=== PATIENT | female | born 1990 | race American Indian/Alaskan Native ===

== ENCOUNTER 2016-12-04 15:36 | Emergency (ER) | payer MEDICAID ==
--- NOTE | 2016-12-04 17:32 | Emergency Department Report ---
Entered by BETTY CORONEL, acting as scribe for SAJI MORRISSEY PA. Chief Complaint: Vaginal Bleeding Stated Complaint: 11 WKS PREG/VAG BLEEDING Time Seen by Provider: 12/04/16 16:42 - HPI History of Present Illness: 26 y/o female presents c/o vaginal bleeding that started today. Sx include constipation that started 3 days ago, vomiting today, abd pain but pt denies fever and chiils. This is her 2nd , P1. 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 - ROS Review of Systems: as noted in HPI - Exam Vital Signs: Vital Signs 12/04/16 16:24 Temperature 98.4 F Pulse Rate 99 H Respiratory 16 Rate Blood Pressure 117/78 O2 Sat by Pulse 100 Oximetry Physical Exam: General: 26-year-old female in no acute distress. Well-developed, well- nourished. CV: Regular rate and rhythm. No murmurs rubs or gallops. Lungs: Clear to auscultation bilaterally. Abdomen: No tenderness to palpation. No guarding or rebound tenderness. Normal bowel sounds. Mini Neuro: Alert and oriented 3. MSE screening note: Focused history and physical exam performed. Due to findings the following was ordered: ED Disposition for MSE Condition: Stable This documentation as recorded by the scribe,BETTY CORONEL,accurately reflects the service I personally performed and the decisions made by me,SAJI MORRISSEY PA.
[2016-12-04 18:27] LABS: Anion Gap 18 mmol/L; Blood Urea Nitrogen 7 mg/dL (7-17); Calcium 9.1 mg/dL (8.4-10.2); Carbon Dioxide 23 mmol/L (22-30); Glucose 106 mg/dL (65-100); Hematocrit 34.9 % (30.3-42.9); Hemoglobin 11.7 gm/dl (10.1-14.3); Mean Corpuscular HGB Conc 34 % (30-34); Mean Corpuscular Hemoglobin 29 pg (28-32); Mean Corpuscular Volume 87 fl (79-97); Platelet Count 351 K/mm3 (140-440); Potassium 3.3 mmol/L (3.6-5.0); Red Blood Count 3.99 M/mm3 (3.65-5.03); Red Cell Distribution Width 14.7 % (13.2-15.2); Sodium 137 mmol/L (137-145); White Blood Count 12.9 K/mm3 (4.5-11.0)
[2016-12-04 19:17] LABS: Blastocytes % (Manual) 0 %
[2016-12-04 19:18] LABS: Basophils % (Manual) 0 % (0.0-1.8); Eosinophils % (Manual) 0 % (0.0-4.3)
[2016-12-04 19:20] LABS: Ovalocytes Few
[2016-12-04 19:21] LABS: Diff Status Complete; Platelet Estimate Consistent w Auto
[2016-12-04 20:21] LABS: Bilirubin,Urine NEG (Negative); Blood,Urine MOD (Negative); Ketones,Urine 20 mg/dL (Negative); Leukocyte Esterase,Urine NEG (Negative); Mucus,Urine 1+ /HPF; Nitrite,Urine NEG (Negative); Urobilinogen,Urine < 2.0 mg/dL (<2.0)
--- NOTE | 2016-12-04 22:10 | Emergency Department Report ---
ED Female HPI - General Chief complaint: Vaginal Bleeding Stated complaint: 11 WKS PREG/VAG BLEEDING Time Seen by Provider: 12/04/16 16:45 Source: patient, RN notes reviewed Mode of arrival: Ambulatory Limitations: No Limitations - History of Present Illness Initial comments: This is a 26-year-old female. She is previously known to me. The patient reports that she is 2, para 1. 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 " She believes her last period to be around . The patient presents to the ER with 2 complaints. The first complaint is vaginal bleeding. Started today. It is cramping. There is no right lower quadrant pain. Describes mild nausea, a few episodes of emesis, nonbloody and nonbilious. There are no irritative or obstructive urinary symptoms. She is not defecating blood. The patient's this complaint is constipation. Constipation has been present for 3 days. She reports discomfort with defecation. The patient reports that she drinks one to 2 cups of water a day. She indicates that her diet does not have enough fruits and vegetables, and she eats a lot of sausage, eggs, and grits. Constipation has no relieving factors. MD Complaint: vaginal bleeding -: Gradual Location: suprapubic, LLQ Quality: cramping Improves with: other (per hpi) Worsens with: other (per hpi) Are you Now?: Yes Associated Symptoms: vaginal bleeding, abdominal pain, nausea/vomiting. denies : vaginal discharge, dysuria, shortness of breath, syncope, weakness - Related Data Sexually active: Yes Previous Rx's Medication Instructions Recorded Last Taken Type Doxylamine/Pyridoxine HCl 1 each PO QHS PRN #30 tablet. 12/04/16 Unknown Rx [Olga Tipton 10-10 mg Tablet] Vit W-Ca,Fe,FA(<1 mg) 1 each PO QDAY #30 tablet 12/04/16 Unknown Rx [ Vitamins] Allergies Allergy/AdvReac Type Severity Reaction Status Date / Time No Known Allergies Allergy Verified 12/04/16 20:13 ED Review of Systems ROS: Stated complaint: 11 WKS PREG/VAG BLEEDING Other details as noted in HPI Constitutional: denies: malaise Eyes: denies: vision change ENT: denies: epistaxis Respiratory: denies: cough Cardiovascular: denies: chest pain Gastrointestinal: constipation Genitourinary: abnormal menses. denies: dysuria Musculoskeletal: denies: back pain Skin: denies: lesions Neurological: denies: abnormal gait Psychiatric: anxiety ED Past Medical Hx - Past Medical History Previous Medical History?: No - Surgical History Past Surgical History?: No - Social History Smoking Status: Never Smoker Substance Use Type: None - Medications Home Medications: Home Medications Medication Instructions Recorded Confirmed Last Taken Type Doxylamine/Pyridoxine HCl 1 each PO QHS PRN #30 tablet. 12/04/16 Unknown Rx [Diclegis Dr 10-10 mg Tablet] Vit W-Ca,Fe,FA(<1 mg) 1 each PO QDAY #30 tablet 12/04/16 Unknown Rx [ Vitamins] ED Physical Exam - General Limitations: No Limitations General appearance: alert, in no apparent distress - Head Head exam: Present: atraumatic, normocephalic - Eye Eye exam: Present: normal appearance, EOMI. Absent: nystagmus - ENT ENT exam: Present: normal exam, normal orophraynx, mucous membranes moist, normal external ear exam - Neck Neck exam: Present: normal inspection, full ROM. Absent: tenderness, meningismus - Respiratory Respiratory exam: Present: normal lung sounds bilaterally. Absent: respiratory distress, wheezes, rales, rhonchi, stridor, chest wall tenderness, accessory muscle use, decreased breath sounds, prolonged expiratory - Cardiovascular Cardiovascular Exam: Present: normal rhythm, tachycardia, normal heart sounds. Absent: systolic murmur, diastolic murmur, rubs, gallop - GI/Abdominal GI/Abdominal exam: Present: soft, tenderness, normal bowel sounds, other (there is no right lower quadrant tenderness. There is suprapubic and left lower quadrant tenderness. There is no rebound, guarding or peritoneal signs.). Absent: distended, guarding, rebound, rigid, pulsatile mass - External exam: Present: normal external exam Speculum exam: Present: normal speculum exam. Absent: vaginal bleeding Bi-manual exam: Present: normal bi-manual exam, other (there is minimal left- sided adnexal and uterine tenderness. During the gynecologic examination, I am escorted by nurse at [facility]). Absent: cervical motion tendernes - Extremities Exam Extremities exam: Present: normal inspection, full ROM, normal capillary refill. Absent: pedal edema, joint swelling, calf tenderness - Back Exam Back exam: Present: normal inspection, full ROM. Absent: tenderness, CVA tenderness (R), CVA tenderness (L), muscle spasm, paraspinal tenderness, vertebral tenderness - Neurological Exam Neurological exam: Present: alert, oriented X3, normal gait, other (Extraocular movements intact. Tongue midline. No facial droop. Facial sensation intact to light touch in the V1, V2, V3 distribution bilaterally. 5 and 5 strength in 4 extremities.. Sensation is intact to light touch in 4 extremities.). Absent : motor sensory deficit - Psychiatric Psychiatric exam: Present: normal affect, normal mood - Skin Skin exam: Present: warm, dry, intact, normal color. Absent: rash ED Course Vital Signs 12/04/16 12/04/16 12/04/16 16:24 22:35 22:41 Temperature 98.4 F Pulse Rate 99 H Respiratory 16 Rate Blood Pressure 117/78 119/78 119/78 Blood Pressure [Right] O2 Sat by Pulse 100 100 Oximetry 12/04/16 12/04/16 12/04/16 22:51 23:00 23:11 Temperature Pulse Rate Respiratory Rate Blood Pressure 122/76 117/72 117/72 Blood Pressure [Right] O2 Sat by Pulse 100 100 99 Oximetry 12/04/16 12/04/16 12/04/16 23:23 23:30 23:31 Temperature 98.4 F Pulse Rate 93 H Respiratory 18 Rate Blood Pressure 117/72 116/71 Blood Pressure 111/72 [Right] O2 Sat by Pulse 99 100 99 Oximetry 12/04/16 12/04/16 12/05/16 23:41 23:51 00:00 Temperature Pulse Rate Respiratory Rate Blood Pressure 116/71 117/71 109/66 Blood Pressure [Right] O2 Sat by Pulse 100 100 100 Oximetry 12/05/16 12/05/16 12/05/16 00:13 00:21 00:30 Temperature Pulse Rate Respiratory Rate Blood Pressure 117/72 120/73 120/82 Blood Pressure [Right] O2 Sat by Pulse 99 85 100 Oximetry 12/05/16 12/05/16 12/05/16 00:41 00:51 01:00 Temperature Pulse Rate Respiratory Rate Blood Pressure 120/82 114/71 111/74 Blood Pressure [Right] O2 Sat by Pulse 100 100 100 Oximetry 12/05/16 12/05/16 12/05/16 01:11 01:21 01:30 Temperature Pulse Rate Respiratory Rate Blood Pressure 120/73 107/72 107/71 Blood Pressure [Right] O2 Sat by Pulse 100 100 100 Oximetry 12/05/16 12/05/16 12/05/16 01:41 01:51 02:00 Temperature Pulse Rate Respiratory Rate Blood Pressure 111/74 108/66 109/71 Blood Pressure [Right] O2 Sat by Pulse 100 100 100 Oximetry 12/05/16 02:28 Temperature Pulse Rate Respiratory Rate Blood Pressure 109/71 Blood Pressure [Right] O2 Sat by Pulse 82 L Oximetry - Reevaluation(s) Reevaluation #1: 12/04/16 23:19 Differential diagnosis: Threatened miscarriage, urinary tract infection, subchorionic hemorrhage, constipation, ovarian cyst, nausea and vomiting of , electrolyte derangement, dehydration Assessment and plan: 26-year-old female with multiple complaints. History and physical supportive diagnosis threatened miscarriage, this is corroborated by ultrasound. She is clinically constipated. She is given instructions on diet and lifestyle modification. Leukocytosis and tachycardia appreciated, this may be related to her underlying condition of , as well as mild dehydration. She is tolerating liquid feeds, potassium is repleted , and she feels improved with acetaminophen. She will be given 1 L of D5 half normal saline. Gynecologic examination is pending. A type and screen is pending. Urinalysis does not suggest urinary tract infection. 12/04/16 23:20 Reevaluation #2: 12/05/16 02:00 patient's gynecologic examination was benign. She is found to be Rh+. Of note, there was delay in disposition because it took a long time for the patient's type to be resulted. In any event, she is tolerating liquid feeds, her abdomen is soft and benign, and she is been observed in the ER for a prolonged period of time. She will be discharged at this time. Return precautions are extensively reviewed. ED Medical Decision Making - Lab Data Result diagrams: 12/04/16 17:50 12/04/16 17:50 Vital Signs 12/04/16 16:24 Temperature 98.4 F Pulse Rate 99 H Respiratory 16 Rate Blood Pressure 117/78 O2 Sat by Pulse 100 Oximetry Lab Results 12/04/16 12/04/1612/04/17 Range/Units 17:50 17:50 17:50 WBC 12.9 H (4.5-11.0) K/mm3 RBC 3.99 (3.65-5.03) M/mm3 Hgb 11.7 (10.1-14.3) gm/dl Hct 34.9 (30.3-42.9) % MCV 87 (79-97) fl MCH 29 (28-32) pg MCHC 34 (30-34) % RDW 14.7 (13.2-15.2) % Plt Count 351 (140-440) K/mm3 Add Manual Diff Complete Total Counted 100 Seg Neutrophils % [place] [employer]isher Seg Neuts % (Manual) 83.0 H (40.0-70.0) % Band Neutrophils % 4.0 % Lymphocytes % (Manual) 8.0 L (13.4-35.0) % Reactive Lymphs % (Man) 1.0 % Monocytes % (Manual) 4.0 (0.0-7.3) % Eosinophils % (Manual) 0 (0.0-4.3) % Basophils % (Manual) 0 (0.0-1.8) % Metamyelocytes % 0 % Myelocytes % 0 % Promyelocytes % 0 % Blast Cells % 0 % Nucleated RBC % Not Reportable Seg Neutrophils # Man 10.7 H (1.8-7.7) K/mm3 Band Neutrophils # 0.5 K/mm3 Lymphocytes # (Manual) 1.0 L (1.2-5.4) K/mm3 Abs React Lymphs (Man) 0.1 K/mm3 Monocytes # (Manual) 0.5 (0.0-0.8) K/mm3 Eosinophils # (Manual) 0.0 (0.0-0.4) K/mm3 Basophils # (Manual) 0.0 (0.0-0.1) K/mm3 Metamyelocytes # 0.0 K/mm3 Myelocytes # 0.0 K/mm3 Promyelocytes # 0.0 K/mm3 Blast Cells # 0.0 K/mm3 WBC Morphology Not Reportable Hypersegmented Neuts Not Reportable Hyposegmented Neuts Not Reportable Hypogranular Neuts Not Reportable Smudge Cells Not Reportable Toxic Granulation Not Reportable Toxic Vacuolation Not Reportable Dohle Bodies Not Reportable Pelger-Huet Anomaly Not Reportable Norbert Rods Not Reportable Platelet Estimate Consistent w auto Clumped Platelets Not Reportable Plt Clumps, EDTA Not Reportable Large Platelets Not Reportable Giant Platelets Not Reportable Platelet Satelliting Not Reportable Plt Morphology Comment Not Reportable RBC Morphology Not Reportable Dimorphic RBCs Not Reportable Polychromasia Not Reportable Hypochromasia Not Reportable Poikilocytosis Not Reportable Anisocytosis Not Reportable Microcytosis Not Reportable Macrocytosis Not Reportable Spherocytes Not Reportable Pappenheimer Bodies Not Reportable Sickle Cells Not Reportable Target Cells Not Reportable Tear Drop Cells Not Reportable Ovalocytes Few Helmet Cells Not Reportable [place] Bodies Not Reportable Parshall Rings Not Reportable Floridalma Cells Not Reportable Bite Cells Not Reportable Crenated Cell Not Reportable Elliptocytes Not Reportable Acanthocytes (Spur) Not Reportable Rouleaux Not Reportable Hemoglobin C Crystals Not Reportable Schistocytes Not Reportable Malaria parasites Not Reportable Juan Bodies Not Reportable Hem Pathologist Commnt No Sodium 137 (137-145) mmol/L Potassium 3.3 L (3.6-5.0) mmol/L Chloride 99.0 (98-107) mmol/L Carbon Dioxide 23 (22-30) mmol/L Anion Gap 18 mmol/L BUN 7 (7-17) mg/dL Creatinine 0.4 L (0.7-1.2) mg/dL Estimated GFR > 60 ml/min BUN/Creatinine Ratio 17.50 % Glucose 106 H (65-100) mg/dL Calcium 9.1 (8.4-10.2) mg/dL HCG, Quant 77207 H (0-4) mIU/mL Urine Color (Yellow) Urine Turbidity (Clear) Urine pH (5.0-7.0) Ur Specific [place] (1.003-1.030) Urine Protein (Negative) mg/dL Urine Glucose (UA) (Negative) mg/dL Urine Ketones (Negative) mg/dL Urine Blood (Negative) Urine Nitrite (Negative) Urine Bilirubin (Negative) Urine Urobilinogen (<2.0) mg/dL Ur Leukocyte Esterase (Negative) Urine WBC (Auto) (0.0-6.0) /HPF Urine RBC (Auto) (0.0-6.0) /HPF U Epithel Cells (Auto) (0-13.0) /HPF Urine Mucus /HPF 12/04/16 Range/Units Unknown WBC (4.5-11.0) K/mm3 RBC (3.65-5.03) M/mm3 Hgb (10.1-14.3) gm/dl Hct (30.3-42.9) % MCV (79-97) fl MCH (28-32) pg MCHC (30-34) % RDW (13.2-15.2) % Plt Count (140-440) K/mm3 Add Manual Diff Total Counted Seg Neutrophils % Seg Neuts % (Manual) (40.0-70.0) % Band Neutrophils % % Lymphocytes % (Manual) (13.4-35.0) % Reactive Lymphs % (Man) % Monocytes % (Manual) (0.0-7.3) % Eosinophils % (Manual) (0.0-4.3) % Basophils % (Manual) (0.0-1.8) % Metamyelocytes % % Myelocytes % % Promyelocytes % % Blast Cells % % Nucleated RBC % Seg Neutrophils # Man (1.8-7.7) K/mm3 Band Neutrophils # K/mm3 Lymphocytes # (Manual) (1.2-5.4) K/mm3 Abs React Lymphs (Man) K/mm3 Monocytes # (Manual) (0.0-0.8) K/mm3 Eosinophils # (Manual) (0.0-0.4) K/mm3 Basophils # (Manual) (0.0-0.1) K/mm3 Metamyelocytes # K/mm3 Myelocytes # K/mm3 Promyelocytes # K/mm3 Blast Cells # K/mm3 WBC Morphology Hypersegmented Neuts Hyposegmented Neuts Hypogranular Neuts Smudge Cells Toxic Granulation Toxic Vacuolation Dohle Bodies Pelger-Huet Anomaly Norbert Rods Platelet Estimate Clumped Platelets Plt Clumps, EDTA Large Platelets Giant Platelets Platelet Satelliting Plt Morphology Comment RBC Morphology Dimorphic RBCs Polychromasia Hypochromasia Poikilocytosis Anisocytosis Microcytosis Macrocytosis Spherocytes Pappenheimer Bodies Sickle Cells Target Cells Tear Drop Cells Ovalocytes Helmet Cells [place] Bodies Parshall Rings Flor[place]ma Cells Bite Cells Crenated Cell Elliptocytes Acanthocytes (Spur) Rouleaux Hemoglobin C Crystals Schistocytes Malaria parasites Juan Bodies Hem Pathologist Commnt Sodium (137-145) mmol/L Potassium (3.6-5.0) mmol/L Chloride (98-107) mmol/L Carbon Dioxide (22-30) mmol/L Anion Gap mmol/L BUN (7-17) mg/dL Creatinine (0.7-1.2) mg/dL Estimated GFR ml/min BUN/Creatinine Ratio % Glucose (65-100) mg/dL Calcium (8.4-10.2) mg/dL HCG, Quant (0-4) mIU/mL Urine Color Yellow (Yellow) Urine Turbidity Clear (Clear) Urine pH 6.0 (5.0-7.0) Ur Specific [place] 1.025 (1.003-1.030) Urine Protein 100 mg/dl (Negative) mg/dL Urine Glucose (UA) Neg (Negative) mg/dL Urine Ketones 20 (Negative) mg/dL Urine Blood Mod (Negative) Urine Nitrite Neg (Negative) Urine Bilirubin Neg (Negative) Urine Urobilinogen < 2.0 (<2.0) mg/dL Ur Leukocyte Esterase Neg (Negative) Urine WBC (Auto) 1.0 (0.0-6.0) /HPF Urine RBC (Auto) 23.0 (0.0-6.0) /HPF U Epithel Cells (Auto) < 1.0 (0-13.0) /HPF Urine Mucus 1+ /HPF - Radiology Data Radiology results: report reviewed, image reviewed Obstetrics intravaginal ultrasound demonstrates a normal intrauterine gestation , pole noted, 7 weeks and 6 days. There is cardiac activity noted, with a rate of 169 beats per minute. There is a hypoechoic focus which is consistent with a subchorionic hemorrhage. There is a complex left ovarian cyst, most likely a corpus luteum cyst. Critical care attestation.: If time is entered above; I have spent that time in minutes in the direct care of this critically ill patient, excluding procedure time. ED Disposition Clinical Impression: Threatened miscarriage Disposition: DISCHARGED TO HOME OR SELFCARE Is pt being admited?: No Does the pt Need Aspirin: No Condition: Stable Instructions: Threatened Miscarriage (ED), Constipation (ED) Additional Instructions: Take nausea medication, vitamins as directed. Follow-up with gynecology specialist within the next week to [address] Billingsley is a local [employer] physician. "[facility] [employer]" is a local gynecology practice. Symptoms are consistent with threatened miscarriage and constipation. Rest and avoid heavy lifting. Avoid strenuous physical activity. 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 Drink plenty of water, 6-8 cups of water per day. Eat plenty of fruits, fibers , plenty of vegetables. Return to the ER right away with new pain, worsened pain, migration of pain, fevers or chills, intractable nausea or vomiting, inability to tolerate liquid feeds, bleeding more than 2 pads soaked through and through per hour, dizziness , lightheadedness, chest pain, shortness of breath. Cultures were sent today, results will be available next 3-5 days. Have your primary care doctor/cheese supervisor contact the medical records department to obtain culture results. Prescriptions: Doxylamine/Pyridoxine HCl [Olga Tipton 10-10 mg Tablet] 1 each PO QHS PRN #30 tablet. PRN Reason: Nausea Vit W-Ca,Fe,FA(<1 mg) [ Vitamins] 1 each PO QDAY #30 tablet Referrals: PRIMARY CAREMD [Primary Care Provider] - 3-5 Days EMILY BILLINGSLEY MD [Staff Physician] - 3-5 Days [facility] [Provider Group] - 3-5 Days Forms: Accompanied Note
--- NOTE | 2016-12-04 22:15 | Ultrasound Report ---
FINAL REPORT EXAM: US OB TRANSVAGINAL HISTORY: vaginal bleed TECHNIQUE: Ultrasound obstetrical transvaginal PRIORS: None. FINDINGS: Intrauterine gestation identified. There is a pole present with crown-rump length 1.5 millimeters corresponding to estimated gestational age 7 weeks 6 days with estimated date of delivery July 17, 2017 cardiac activity is present with heart rate of 169 beats per minute. Adjacent to the gestational sac there is a hypoechoic focus measuring 1.9 x 0.7 x 1.4 centimeters corresponding to a subchorionic Yolk sac is identified No free-fluid is seen within the cul-de-sac hemorrhage. Right ovary is 3.5 x 2.5 x 3.5 centimeters. No abnormal mass or cyst identified left ovary is 4.4 x 3.5 x 5.1 centimeters. There is a complex 2.4 centimeter left ovarian cyst IMPRESSION: Single live intrauterine gestation estimated at 7 weeks 6 days 1.9 x 0.7 x 1.4 centimeters subchorionic hemorrhage Complex left ovarian cyst noted probable corpus luteum
--- NOTE | 2016-12-04 22:16 | Ultrasound Report ---
FINAL REPORT EXAM: US OB \T\lt; = 14 WEEKS FETUS HISTORY: Vaginal bleeding TECHNIQUE: Ultrasound pelvis transabdominal obstetrical PRIORS: None. FINDINGS: Gestational sac present within the uterus. There is pole measuring 1.43 centimeters corresponding to estimated gestational age is 7 weeks 5 days. cardiac activity noted Small subchorionic hemorrhage is noted Please see report of today's transvaginal ultrasound for further findings. IMPRESSION: Single live intrauterine gestation with small subchorionic hemorrhage
[2016-12-04] MEDS ORDERED: D5/0.45NS 1,000 ML IV SCH (23:00)
[2016-12-04] MEDS: TYLENOL PO ONE (23:36)
[2016-12-04] MEDS: K-DUR PO ONE (23:36)
[2016-12-04] MEDS: ZOFRAN IV ONE (23:36)
[2016-12-04] MEDS: NACL 0.9% 1000 ML 1,000 ML IV ONE (23:51)
[2016-12-05 02:38] VITALS: BP 109/71
== END 2016-12-05 02:15 | disposition home or self-care (01) ==
LOC: ED 15:36
DX: O20.0 Threatened abortion (principal)
CPT/HCPCS: 36415; 76801; 76817; 80048; 81001; 84702; 85007; 85025; 86850; 86900; 86901; 87086; 96361; 96374; 99285; J2405